=== PATIENT | female | born 1945 | race Caucasian/White ===

== ENCOUNTER 2016-11-10 18:06 | Emergency (ER) | payer MEDICARE, BC ==
[2016-11-10] MEDS ORDERED: MECLIZINE 12.5 MG TAB PO STA (18:51)
[2016-11-10] MEDS ORDERED: SODIUM CHLORIDE 0.9% 1,000 ML IV STA (18:51)
--- NOTE | 2016-11-10 18:58 | ED ---
Dizziness HPI - General Chief Complaint: Dizziness Stated Complaint: SENT BY DR BUSTOS TO R/O BLOODCLOT Time Seen by Provider: 11/10/16 18:51 Source: patient, RN notes reviewed Mode of arrival: wheelchair Limitations: no limitations - History of Present Illness Initial Comments: Is a 71-year-old female who is status post a right knee replacement in October 01 of last year who states she's had intermittent episodes of dizziness with movement of her head she states it feels similar to her vertigo she's had the past she has had a slight headache she was sent by her doctor for evaluation for Fear that there may be a blood clot. He does have a history of an aneurysm was repaired 2004. She denies any fevers chills or sweats she currently is asymptomatic. MD Complaint: dizziness, lightheadedness - Related Data Home Medications Medication Instructions Recorded Confirmed ALPRAZolam [Xanax] 0.25 mg PO BID PRN 10/07/14 11/10/16 HYDROcodone/APAP 7.5-325MG [[place] 1 tab PO Q4H PRN 10/07/14 11/10/16 7.5-325] Hydrochlorothiazide [Hydrodiuril] 25 mg PO Q48H 10/07/14 11/10/16 Levothyroxine Sodium [Synthroid] 50 mcg PO DAILY 10/07/14 11/10/16 Omeprazole [PriLOSEC] 20 mg PO AC-BRKFST 10/07/14 11/10/16 Simvastatin [Zocor] 40 mg PO HS 10/07/14 11/10/16 Temazepam [Restoril] 15 mg PO HS 10/07/14 11/10/16 Amoxicillin 2,000 mg PO ONCE 11/10/16 11/10/16 Cholecalciferol [Vitamin D3] 5,000 unit PO HS 11/10/16 11/10/16 Gabapentin [Neurontin] 300 mg PO TID 11/10/16 11/10/16 Previous Rx's Medication Instructions Recorded Meclizine [Antivert] 25 mg PO TID #20 tab 11/10/16 Allergies Allergy/AdvReac Type Severity Reaction Status Date / Time tetanus toxoid, adsorbed Allergy Unknown Verified 11/10/16 19:20 oxycodone HCl [From Percocet] AdvReac Severe Nausea & Verified 11/10/16 19:20 Vomiting lactose AdvReac Nausea & Verified 11/10/16 19:20 Vomiting & Diarrhea Review of Systems ROS Statement: Those systems with pertinent positive or pertinent negative responses have been documented in the HPI. ROS Other: All systems not noted in ROS Statement are negative. Past Medical History Past Medical History: Hyperlipidemia, Thyroid Disorder Additional Past Medical History / Comment(s): sciatica, brain aneurysm, gastric ulcers,ceiliac disease History of Any Multi-Drug Resistant Organisms: None Reported Past Surgical History: Hysterectomy, Joint Replacement, Orthopedic Surgery, Tonsillectomy Additional Past Surgical History / Comment(s): yvette aneuyrsm clip Past Psychological History: Anxiety Smoking Status: Former smoker Past Alcohol Use History: Occasional Past Drug Use History: None Reported General Exam - General Exam Comments Initial Comments: This is a well-developed well-nourished awake alert oriented x3 female Limitations: no limitations General appearance: alert, in no apparent distress Head exam: Present: atraumatic, normocephalic, normal inspection Eye exam: Present: normal appearance, PERRL, EOMI. Absent: scleral icterus, conjunctival injection, periorbital swelling ENT exam: Present: normal exam, mucous membranes moist Neck exam: Present: normal inspection. Absent: tenderness, meningismus, lymphadenopathy Respiratory exam: Present: normal lung sounds bilaterally. Absent: respiratory distress, wheezes, rales, rhonchi, stridor Cardiovascular Exam: Present: regular rate, normal rhythm, normal heart sounds. Absent: systolic murmur, diastolic murmur, rubs, gallop, clicks GI/Abdominal exam: Present: soft, normal bowel sounds. Absent: distended, tenderness, guarding, rebound, rigid Extremities exam: Present: normal inspection, full ROM, normal capillary refill , other (The surgical wound is clean and healing well no evidence of any infection no edema no ecchymosis no neurovascular deficits.). Absent: tenderness, pedal edema, joint swelling, calf tenderness Back exam: Present: normal inspection Neurological exam: Present: alert, oriented X3, CN II-XII intact Psychiatric exam: Present: normal affect, normal mood Skin exam: Present: warm, dry, intact, normal color. Absent: rash Course Vital Signs 11/10/16 18:33 Temperature 98.2 F Pulse Rate 78 Respiratory 20 Rate Blood Pressure 150/85 O2 Sat by Pulse 97 Oximetry EKG Findings - EKG Results: EKG: interpreted by ERMD, sinus rhythm (Sinus rhythm of 82. A 140 QRS duration 74 QT/QTC of 370/[address] configuration) Medical Decision Making - Medical Decision Making Patient showing much improved she is awake alert oriented with no symptoms at this time the presentation is consistent with benign positional vertigo she will be discharged with Antivert - Lab Data Result diagrams: 11/10/16 19:00 11/10/16 19:00 Lab Results 11/10/16 11/10/16 11/10/16 Range/Units 19:00 19:00 19:00 WBC 9.4 (3.8-10.6) k/uL RBC 4.52 (3.80-5.40) m/uL Hgb 12.8 (11.4-16.0) gm/dL Hct 39.5 (34.0-46.0) % MCV 87.4 (80.0-100.0) fL MCH 28.4 (25.0-35.0) pg MCHC 32.5 (31.0-37.0) g/dL RDW 12.6 (11.5-15.5) % Plt Count 260 (150-450) k/uL Neutrophils % 63 % Lymphocytes % 28 % Monocytes % 6 % Eosinophils % 1 % Basophils % 2 % Neutrophils # 5.9 (1.3-7.7) k/uL Lymphocytes # 2.6 (1.0-4.8) k/uL Monocytes # 0.6 (0-1.0) k/uL Eosinophils # 0.1 (0-0.7) k/uL Basophils # 0.1 (0-0.2) k/uL Sodium 138 (137-145) mmol/L Potassium 3.6 (3.5-5.1) mmol/L Chloride 94 L (98-107) mmol/L Carbon Dioxide 28 (22-30) mmol/L Anion Gap 16 mmol/L BUN 11 (7-17) mg/dL Creatinine 0.78 (0.52-1.04) mg/dL Est GFR (MDRD) Af Amer >60 (>60 ml/min/1.73 sqM) Est GFR (MDRD) Non-Af >60 (>60 ml/min/1.73 sqM) Glucose 96 (74-99) mg/dL POC Glucose (mg/dL) (75-99) mg/dL POC Glu Steam Table Attendant ID Calcium 10.3 H (8.4-10.2) mg/dL Magnesium 2.0 (1.6-2.3) mg/dL Total Bilirubin 0.6 (0.2-1.3) mg/dL AST 22 (14-36) U/L ALT 26 (9-52) U/L Alkaline Phosphatase 89 (38-126) U/L Total Creatine Kinase (30-135) U/L CK-MB (CK-2) (0.0-2.4) ng/mL CK-MB (CK-2) Rel Index Troponin I (0.000-0.034) ng/mL Total Protein 8.6 H (6.3-8.2) g/dL Albumin 5.4 H (3.5-5.0) g/dL Urine Color Light Yellow Urine Appearance Clear (Clear) Urine pH 6.5 (5.0-8.0) Ur Specific [place] 1.006 (1.001-1.035) Urine Protein Negative (Negative) Urine Glucose (UA) Negative (Negative) Urine Ketones Negative (Negative) Urine Blood Negative (Negative) Urine Nitrate Negative (Negative) Urine Bilirubin Negative (Negative) Urine Urobilinogen <2.0 (<2.0) mg/dL Ur Leukocyte Esterase Moderate H (Negative) Urine RBC 1 (0-5) /hpf Urine WBC 5 (0-5) /hpf Ur Squamous Epith Cells 1 (0-4) /hpf Urine Bacteria Rare H (None) /hpf 11/10/16 11/10/16 Range/Units 19:00 19:15 WBC (3.8-10.6) k/uL RBC (3.80-5.40) m/uL Hgb (11.4-16.0) gm/dL Hct (34.0-46.0) % MCV (80.0-100.0) fL MCH (25.0-35.0) pg MCHC (31.0-37.0) g/dL RDW (11.5-15.5) % Plt Count (150-450) k/uL Neutrophils % % Lymphocytes % % Monocytes % % Eosinophils % % Basophils % % Neutrophils # (1.3-7.7) k/uL Lymphocytes # (1.0-4.8) k/uL Monocytes # (0-1.0) k/uL Eosinophils # (0-0.7) k/uL Basophils # (0-0.2) k/uL Sodium (137-145) mmol/L Potassium (3.5-5.1) mmol/L Chloride (98-107) mmol/L Carbon Dioxide (22-30) mmol/L Anion Gap mmol/L BUN (7-17) mg/dL Creatinine (0.52-1.04) mg/dL Est GFR (MDRD) Af Amer (>60 ml/min/1.73 sqM) Est GFR (MDRD) Non-Af (>60 ml/min/1.73 sqM) Glucose (74-99) mg/dL POC Glucose (mg/dL) 89 (75-99) mg/dL POC Glu Steam Table Attendant Keesha Mir Calcium (8.4-10.2) mg/dL Magnesium (1.6-2.3) mg/dL Total Bilirubin (0.2-1.3) mg/dL AST (14-36) U/L ALT (9-52) U/L Alkaline Phosphatase (38-126) U/L Total Creatine Kinase 49 (30-135) U/L CK-MB (CK-2) 0.5 (0.0-2.4) ng/mL CK-MB (CK-2) Rel Index 1.0 Troponin I <0.012 (0.000-0.034) ng/mL Total Protein (6.3-8.2) g/dL Albumin (3.5-5.0) g/dL Urine Color Urine Appearance (Clear) Urine pH (5.0-8.0) Ur Specific [place] (1.001-1.035) Urine Protein (Negative) Urine Glucose (UA) (Negative) Urine Ketones (Negative) Urine Blood (Negative) Urine Nitrate (Negative) Urine Bilirubin (Negative) Urine Urobilinogen (<2.0) mg/dL Ur Leukocyte Esterase (Negative) Urine RBC (0-5) /hpf Urine WBC (0-5) /hpf Ur Squamous Epith Cells (0-4) /hpf Urine Bacteria (None) /hpf - Radiology Data Radiology results: report reviewed (I did review the imaging and reports no acute findings.), image reviewed Disposition Clinical Impression: Benign paroxysmal positional vertigo Disposition: HOME SELF-CARE Condition: Good Instructions: Dizziness (ED), Benign Paroxysmal Positional Vertigo (ED) Prescriptions: Meclizine [Antivert] 25 mg PO TID #20 tab
[2016-11-10 19:16] LABS: Glucose,Whole Blood 89 mg/dL (75-99)
[2016-11-10 19:22] LABS: Appearance,Urine Clear (Clear); Bacteria,Urine Rare /hpf; Bilirubin,Urine Negative (Negative); Glucose,Urine (UA) Negative (Negative); Ketones,Urine Negative (Negative); Leukocyte Esterase,Urine Moderate (Negative); Nitrite,Urine Negative (Negative); PH, Urine 6.5 (5.0-8.0); Particle Count 973; Protein,Urine Negative (Negative); RBC,Urine 1 /hpf (0-5); Specific Gravity,Urine 1.006 (1.001-1.035); Squamous Epithelial Cell,Urine 1 /hpf (0-4); UA Billing (MACRO vs. MICRO) MICRO; Urobilinogen,Urine <2.0 mg/dL (<2.0); WBC,Urine 5 /hpf (0-5)
[2016-11-10 19:30] LABS: ALT 26 U/L (9-52); AST 22 U/L (14-36); Alkaline Phosphatase 89 U/L (38-126); Anion Gap 16 mmol/L; Blood Urea Nitrogen 11 mg/dL (7-17); Calcium 10.3 mg/dL (8.4-10.2); Carbon Dioxide 28 mmol/L (22-30); Chloride 94 mmol/L (98-107); Glucose 96 mg/dL (74-99); Non-African American GFR(MDRD) >60 (>60 ml/min/1.73 sqM); Potassium 3.6 mmol/L (3.5-5.1); Sodium 138 mmol/L (137-145); Total Bilirubin 0.6 mg/dL (0.2-1.3); Total Protein 8.6 g/dL (6.3-8.2)
[2016-11-10 19:41] LABS: Creatine Kinase 49 U/L (30-135)
[2016-11-10 19:52] LABS: Basophils # (A) 0.1 k/uL (0-0.2); Basophils % (A) 2 %; CH 29.1; CHCM 33.4; Eosinophils # (A) 0.1 k/uL (0-0.7); Eosinophils % (A) 1 %; HCT 39.5 % (34.0-46.0); HDW 2.52; HGB 12.8 gm/dL (11.4-16.0); Luc # (Auto) 0.12; Luc % (Auto) 1; Lymphocytes # (A) 2.6 k/uL (1.0-4.8); Lymphocytes % (A) 28 %; MCH 28.4 pg (25.0-35.0); MCHC 32.5 g/dL (31.0-37.0); MCV 87.4 fL (80.0-100.0); Mean Platelet Volume 8.8; Monocytes # (A) 0.6 k/uL (0-1.0); Monocytes % (A) 6 %; Neutrophils # (A) 5.9 k/uL (1.3-7.7); Neutrophils % (A) 63 %; RBC 4.52 m/uL (3.80-5.40); RDW 12.6 % (11.5-15.5); WBC 9.4 k/uL (3.8-10.6); WBC (Perox) 9.52
[2016-11-10 19:54] LABS: Creatine Kinase MB 0.5 ng/mL (0.0-2.4); Troponin I <0.012 ng/mL (0.000-0.034)
--- NOTE | 2016-11-10 21:40 | CT ---
EXAMINATION TYPE: CT brain wo con DATE OF EXAM: 11/10/2016 9:13 PM COMPARISON: MRI first of May 2012 HISTORY: Knee surgery 1 week ago. Dizziness today. CT DLP: 1085.00 mGycm Automated exposure control for dose reduction was used. FINDINGS: There is no acute intracranial hemorrhage, mass effect, or midline shift identified. The ventricles and sulci are within normal limits in size. The globes are intact and the visualized sinuses are godwin ar. Postcraniotomy changes are present, status post aneurysm clipping on the right at the middle cere bral artery. Low attenuation within the basal ganglia on the right likely represents a lacunar infarc t which is chronic. IMPRESSION: No acute intracranial hemorrhage, mass effect, or midline shift is seen.
[2016-11-10 22:25] VITALS: BP 153/83; PULSE 84; RESP 18; TEMP 98.5
== END 2016-11-10 22:24 | disposition home or self-care (01) ==
LOC: EC 18:06
DX: H81.10 Benign paroxysmal vertigo, unspecified ear (principal); E78.5 Hyperlipidemia, unspecified; E07.9 Disorder of thyroid, unspecified; Z88.5 Allergy status to narcotic agent; Z88.7 Allergy status to serum and vaccine; Z88.8 Allergy status to other drugs, medicaments and biological substances; Z87.891 Personal history of nicotine dependence; Z79.899 Other long term (current) drug therapy
CPT/HCPCS: 36415; 70450; 80053; 81001; 82550; 82553; 83735; 84484; 85025; 93005; 96360; 96361; 99284

== ENCOUNTER 2019-02-07 15:06 | Emergency (ER) | payer MEDICARE, BC ==
[2019-02-07 15:22] VITALS: BP 145/85; PULSE 84; RESP 18; TEMP 97.6
[2019-02-07] MEDS ORDERED: HYDROmorphone 0.5 MG/0.5 ML SYRINGE IVP STA (16:11)
[2019-02-07] MEDS ORDERED: ONDANSETRON 4 MG/2 ML VIAL IVP STA (16:11)
--- NOTE | 2019-02-07 17:02 | CT ---
EXAMINATION TYPE: CT brain bruce donovan DATE OF EXAM: 02/07/2019 COMPARISON: CT brain 11/10/2016 HISTORY: Fall today. Small abrasion around left orbit. CT DLP: 1472.1 mGycm Automated exposure control for dose reduction was used. TECHNIQUE: CT scan of the head and cervical spine are performed without contrast. FINDINGS: There is cerebral cortical atrophy. There is no mass effect nor midline shift. There is n o sign of intracranial hemorrhage. The calvarium is intact. There is old right lateral frontal cranio sandee defect. There is old right temporal craniotomy defect. Cervical vertebra have fairly normal alignment. There is mild degenerative disc space narrowing throu ghout the cervical spine. Skull base appears intact. Posterior elements are intact. The facet joints are intact. IMPRESSION: Minor degenerative disc changes in the cervical spine. No fracture. Previous right side craniotomy defects. No acute intracranial abnormality. Mild cerebral atrophy.
--- NOTE | 2019-02-07 17:03 | XR ---
EXAMINATION TYPE: XR Hip RT and AP Pelvis DATE OF EXAM: 02/07/2019 COMPARISON: Pelvis x-ray 11/04/2015 HISTORY: Pain after falling TECHNIQUE: A single AP view of the pelvis is obtained. Two views of the right hip are obtained. FINDINGS: The pelvic ring appears intact. There is intramedullary yue in the proximal left femur. Th ere are rods and screws fusing the lumbar spine at L5-S1. The proximal right femur and hip joint appe ar intact. There is no sign of hip dysplasia. IMPRESSION: No acute abnormality of the pelvis and right hip.
--- NOTE | 2019-02-07 17:04 | XR ---
EXAMINATION TYPE: XR femur RT DATE OF EXAM: 02/07/2019 COMPARISON: NONE HISTORY: Pain after falling TECHNIQUE: 4 views FINDINGS: I see no fracture nor dislocation. Hip joint appears intact. There is a right knee prosthes is. There is no sign of knee joint effusion. IMPRESSION: Negative right femur exam. No fracture seen.
--- NOTE | 2019-02-07 17:19 | ED ---
Fall HPI - General Chief Complaint: Fall Stated Complaint: Fall-Knee/Head Injury Time Seen by Provider: 02/07/19 15:49 Source: patient, family, RN notes reviewed Mode of arrival: wheelchair Limitations: no limitations - History of Present Illness Initial Comments: 73-year-old female presents emergency Department with chief complaint of fall. Patient mechanical fall. Patient complains of right hip, right leg pain, facial injury. Patient's states that she feels pulling, pain in the posterior right thigh, right hip pain. Patient states that she was no loss conscious. Patient did complain a headache which has resolved. Patient denies any neck pain or extremity weakness. Patient denies any paresthesias. No chest pain or shortness breath - Related Data Home Medications Medication Instructions Recorded Confirmed ALPRAZolam [Xanax] 0.25 mg PO HS 10/07/14 02/07/19 Hydrochlorothiazide [Hydrodiuril] 25 mg PO Q48H 10/07/14 02/07/19 Levothyroxine Sodium [Synthroid] 50 mcg PO DAILY 10/07/14 02/07/19 Simvastatin [Zocor] 40 mg PO HS 10/07/14 02/07/19 Temazepam [Restoril] 15 mg PO HS 10/07/14 02/07/19 Amoxicillin 2,000 mg PO ONCE 11/10/16 02/07/19 Gabapentin [Neurontin] 300 mg PO TID 11/10/16 02/07/19 Meclizine [Antivert] 25 mg PO TID PRN 02/07/19 02/07/19 Meloxicam [Mobic] 15 mg PO Q48H 02/07/19 02/07/19 Previous Rx's Medication Instructions Recorded Cyclobenzaprine [Flexeril] 10 mg PO TID PRN #15 tab 02/07/19 HYDROcodone/APAP 7.5-325MG [[place] 1 tab PO Q6HR PRN 3 Days #12 tab 02/07/19 7.5-325] Allergies Allergy/AdvReac Type Severity Reaction Status Date / Time tetanus toxoid, adsorbed Allergy Unknown Verified 02/07/19 16:43 oxycodone HCl [From Percocet] AdvReac Severe Nausea & Verified 02/07/19 16:43 Vomiting lactose AdvReac Nausea & Verified 02/07/19 16:43 Vomiting & Diarrhea Review of Systems ROS Statement: Those systems with pertinent positive or pertinent negative responses have been documented in the HPI. ROS Other: All systems not noted in ROS Statement are negative. Past Medical History Past Medical History: Hyperlipidemia, Thyroid Disorder Additional Past Medical History / Comment(s): sciatica, brain aneurysm, gastric ulcers,ceiliac disease History of Any Multi-Drug Resistant Organisms: None Reported Past Surgical History: Hysterectomy, Joint Replacement, Orthopedic Surgery, Tonsillectomy Additional Past Surgical History / Comment(s): yvette aneuyrsm clip Past Psychological History: Anxiety Smoking Status: Former smoker Past Alcohol Use History: Occasional Past Drug Use History: None Reported General Exam Limitations: physical limitation General appearance: alert, in no apparent distress Head exam: Present: atraumatic, normocephalic, normal inspection Neck exam: Present: normal inspection, full ROM. Absent: tenderness, meningismu s, lymphadenopathy Respiratory exam: Present: normal lung sounds bilaterally. Absent: respiratory distress, wheezes, rales, rhonchi, stridor Cardiovascular Exam: Present: regular rate, normal rhythm, normal heart sounds. Absent: systolic murmur, diastolic murmur, rubs, gallop, clicks Extremities exam: Present: other (Right hip mild tenderness to palpation, tenderness to the posterior thigh region, legs neurovascular intact mild discomfort with range of motion upper extremity full range of motion neurovascular intact) Back exam: Present: full ROM. Absent: tenderness, paraspinal tenderness, vertebral tenderness Course Vital Signs 02/07/19 15:19 Temperature 97.6 F Pulse Rate 84 Respiratory 18 Rate Blood Pressure 145/85 O2 Sat by Pulse 98 Oximetry Medical Decision Making - Medical Decision Making 73-year-old female presented for a fall. X-rays, CTs were obtained no acute fracture no intracranial hemorrhage. Patient will be discharged return parameters were discussed. Disposition Clinical Impression: Fall, Right hamstring muscle strain, Contusion of right hip, Head injury Disposition: HOME SELF-CARE Condition: Stable Instructions (If sedation given, give patient instructions): Hip Pain (ED) Additional Instructions: Please return to the Emergency Department if symptoms worsen or any other concerns. Prescriptions: Cyclobenzaprine [Flexeril] 10 mg PO TID PRN #15 tab PRN Reason: Muscle Spasm HYDROcodone/APAP 7.5-325MG [[place] 7.5-325] 1 tab PO Q6HR PRN 3 Days #12 tab PRN Reason: Pain Is patient prescribed a controlled substance at d/c from ED?: Yes When asked, does pt state using other controlled substances?: No If prescribed controlled substance>3 days was MAPS reviewed?: Prescribed <3 Days If opioid is for acute pain is fill amount 7 days or less?: Yes If Rx opioid, was Start Talking consent form obtained?: Yes Referrals: Naa Aden MD [Primary Care Provider] - 1-2 days Time of Disposition: 17:18
== END 2019-02-07 17:45 | disposition home or self-care (01) ==
LOC: EC 15:06
DX: S76.311A Strain of muscle, fascia and tendon of the posterior muscle group at thigh level, right thigh, initial encounter (principal); S70.01XA Contusion of right hip, initial encounter; S09.90XA Unspecified injury of head, initial encounter; E78.5 Hyperlipidemia, unspecified; E07.9 Disorder of thyroid, unspecified; F41.9 Anxiety disorder, unspecified; Z96.60 Presence of unspecified orthopedic joint implant; Z88.5 Allergy status to narcotic agent; Z88.7 Allergy status to serum and vaccine; Z91.011 Allergy to milk products; Z79.1 Long term (current) use of non-steroidal anti-inflammatories (NSAID); Z79.890 Hormone replacement therapy; Z79.899 Other long term (current) drug therapy; Z87.891 Personal history of nicotine dependence; W01.0XXA Fall on same level from slipping, tripping and stumbling without subsequent striking against object, initial encounter; X50.1XXA Overexertion from prolonged static or awkward postures, initial encounter
CPT/HCPCS: 99284; 96374; 96375; 73502; 73552; 72125; 70450; J2405; J1170

== ENCOUNTER → 2022-09-15 | Outpatient (CLI) | payer MEDICARE, BC ==
--- NOTE | 2022-09-15 11:25 | XR ---
EXAMINATION TYPE: XR facial bones limited DATE OF EXAM: 09/15/2022 COMPARISON: CT brain 2019 HISTORY: Recent fall injury 12 days ago with pain. History of aneurysm surgery. TECHNIQUE: Frontal lateral views facial bones FINDINGS: Right frontal craniotomy plate is present. There is aneurysm clip in the right middle cereb ral artery distribution. Areas of linear lucency likely reflect sites of prior craniotomy as are fair ly well-defined. Acute skull fracture less likely but not entirely excluded. No suspicious soft tissu e swelling seen to suggest acute fracture. IMPRESSION: As above.
== END | disposition home or self-care (01) ==
LOC: RADXRYALE 10:55
PROVIDERS: ATTEND Internal Medicine
DX: S09.90XA Unspecified injury of head, initial encounter (principal); Z86.79 Personal history of other diseases of the circulatory system
CPT/HCPCS: 70140